=== PATIENT | male | born 1980 | race African-American/Black ===

== ENCOUNTER 2022-11-23 17:16 | Emergency (ER) | payer OTHER ==
[2022-11-23 17:24] VITALS: BP 105/75; PULSE 103; RESP 18; TEMP 98.2; BMI 33.0
[2022-11-23] MEDS ORDERED: ACETAMINOPHEN 500 MG TABLET (FP) PO ONE (19:34)
[2022-11-23] MEDS ORDERED: IBUPROFEN 600 MG TABLET (FP) PO ONE ×3 (19:34→19:47)
[2022-11-23] MEDS ORDERED: LIDOCAINE 5% TOPICAL PATCH TP ONE (19:36)
[2022-11-23] MEDS ORDERED: CYCLOBENZAPRINE HCL 5 MG TABLET PO ONE ×2 (19:46)
[2022-11-23] MEDS ORDERED: ACETAMINOPHEN 500 MG TABLET (FP) ONE (19:47)
[2022-11-23] MEDS ORDERED: LIDOCAINE 5% TOPICAL PATCH ONE (19:47)
[2022-11-23] MEDS ORDERED: CYCLOBENZAPRINE HCL 10 MG TABLET (FP) ONE (19:47)
[2022-11-23 20:20] LABS: EPI CELLS 3 /uL (0-25.1); HYALINE CASTS 0 /uL (0-3.1); PH,URINE 5.5 (5.0-8.0); URINE APPEARANCE CLEAR; URINE BACTERIA 6 /uL (0-1359); URINE BILIRUBIN NEGATIVE (NEGATIVE); URINE COLOR YELLOW; URINE GLUCOSE (UA) NEGATIVE (NEGATIVE); URINE KETONE TRACE (NEGATIVE); URINE LEUK ESTERASE NEGATIVE (NEGATIVE); URINE NITRITE NEGATIVE (NEGATIVE); URINE PROTEIN NEGATIVE (NEGATIVE); URINE RBC 7 /uL (0-23.9); URINE WBC 5 /uL (0-25.8)
[2022-11-23] MEDS ORDERED: LIDOCAINE PATCH REMOVAL MC SCH (22:00)
== END 2022-11-23 20:46 | disposition home or self-care (01) ==
LOC: JERFT 17:16 → JER 17:16 → JERFT 20:46
DX: M54.50 Low back pain, unspecified (principal)
CPT/HCPCS: 81003; 87086; 99283-25

== ENCOUNTER 2023-04-26 22:10 | Emergency (ER) | payer OTHER ==
[2023-04-26 22:36] VITALS: BMI 33.0
[2023-04-26] MEDS ORDERED: morphine CARPU-JECT 4 MG/1 ML DISP.SYRIN IVPUSH ONE (22:59)
[2023-04-26] MEDS ORDERED: morphine SULFATE 4 MG/ML VIAL ONE (23:28)
[2023-04-27] MEDS ORDERED: DIPHTH,PERTUSS(ACELL),TET 0.5 ML DISP.SYRIN IM ONE ×2 (00:31→00:34)
[2023-04-27 01:53] VITALS: BP 122/68; PULSE 56; RESP 18; TEMP 98
== END 2023-04-27 01:53 | disposition short-term general hospital (02) ==
LOC: JER 22:10
PROC: 3E033GC Introduction of Other Therapeutic Substance into Peripheral Vein, Percutaneous Approach (ICD-10-PCS; principal; 2023-04-26)
PROC: 3E0234Z Introduction of Serum, Toxoid and Vaccine into Muscle, Percutaneous Approach (ICD-10-PCS; 2023-04-27)
DX: S02.831A Fracture of medial orbital wall, right side, initial encounter for closed fracture (principal); R51.9 Headache, unspecified; H57.11 Ocular pain, right eye; S01.511A Laceration without foreign body of lip, initial encounter; S01.81XA Laceration without foreign body of other part of head, initial encounter; W51.XXXA Accidental striking against or bumped into by another person, initial encounter
CPT/HCPCS: 70450-TC; 70486-TC; 72125-TC; 90471; 90715; 96374; 99284-25